=== PATIENT | male | born 1955 | race Caucasian/White ===

== ENCOUNTER 2023-06-04 15:47 | Outpatient (CLI) | payer BC, MEDICARE | END 2023-06-04 15:48 | disposition home or self-care (01) | LOC: LABBT 15:47 | PROVIDERS: ATTEND Surgery | DX: Z01.810 Encounter for preprocedural cardiovascular examination (principal); K21.9 Gastro-esophageal reflux disease without esophagitis; K44.9 Diaphragmatic hernia without obstruction or gangrene; K22.9 Disease of esophagus, unspecified; Z98.84 Bariatric surgery status | CPT/HCPCS: 93005; 93010 ==

== ENCOUNTER 2023-06-04 17:00 | Inpatient (IN) | payer MEDICARE ==
[2023-06-14] MEDS ORDERED: Lidocaine 1% PF 5 ML VIAL ONE ×2 (06:54→07:55)
[2023-06-14] MEDS ORDERED: PROPOFOL 20 ML ONE (06:54)
[2023-06-14] MEDS ORDERED: Rocuronium Bromide 10 MG/ML (10ML VIAL) ONE ×2 (06:54→07:55)
[2023-06-14] MEDS ORDERED: fentaNYL PF 100 MCG/2 ML SYRINGE ONE (06:54)
[2023-06-14] MEDS ORDERED: EPINEPHrine 1 MG/ML VIAL ONE (06:58)
[2023-06-14] MEDS ORDERED: Bupivacaine 0.25% HCL 30 ML VIAL ONE (06:58)
[2023-06-14] MEDS ORDERED: Famotidine/PF 20 mg/2ml Vial ONE (07:29)
[2023-06-14] MEDS ORDERED: cefOXitin 2 GM VIAL ONE ×3 (07:34→12:03)
[2023-06-14] MEDS ORDERED: Sodium Chloride 0.9% 100 ML ONE (07:34)
[2023-06-14] MEDS ORDERED: Succinylcholine 200 MG/10 ml SYRINGE FS ONE ×2 (07:52→07:55)
[2023-06-14] MEDS ORDERED: Ondansetron PF 4 MG/2 ML Vial ONE ×2 (07:55→12:51)
[2023-06-14] MEDS ORDERED: Dexamethasone 20 MG/5 ML VIAL ONE ×2 (07:55→08:09)
[2023-06-14] MEDS ORDERED: ePHEDrine Sulfate 50 MG/10 ML VIAL ONE ×2 (07:55→08:01)
[2023-06-14] MEDS ORDERED: Ketorolac Tromethamine 30 MG/ML VIAL ONE ×2 (07:55→12:51)
[2023-06-14] MEDS ORDERED: Glycopyrrolate 0.2 MG/ML 5 ML SYRINGE ONE (07:55)
[2023-06-14] MEDS ORDERED: PHENYLEPHRINE-NS 100 MCG/ML 10 ML SYRINGE ONE ×2 (07:55→10:06)
[2023-06-14] MEDS ORDERED: PROPOFOL 200 MG/20 ML VIAL ONE (07:55)
[2023-06-14] MEDS ORDERED: fentaNYL 50 mcg/mL 1 mL Vial ONE (11:40)
[2023-06-14] MEDS ORDERED: SUGAMMADEX SODIUM 200 MG/2 ML VIAL ONE (12:54)
[2023-06-14] MEDS ORDERED: Ondansetron HCl/PF 4 MG/2 ML Vial IVP PRN (13:15)
[2023-06-14] MEDS ORDERED: Promethazine HCl 25 MG/ML VIAL IM PRN ×2 (13:15→13:51)
[2023-06-14] MEDS ORDERED: Ondansetron PF 4 MG/2 ML Vial IVP PRN (13:51)
[2023-06-14] MEDS ORDERED: Morphine 2 MG/ML VIAL SLOW IVP PRN (13:51)
[2023-06-14] MEDS ORDERED: hydrALAZINE 20 MG/ML VIAL SLOW IVP PRN (13:51)
[2023-06-14] MEDS ORDERED: diphenhydrAMINE 50 MG/ML VIAL IVP PRN (13:51)
[2023-06-14] MEDS ORDERED: Hydrocodone-Acetamin 15 ML UDCUP PO PRN (13:51)
[2023-06-14] MEDS ORDERED: Glucagon 1 MG/ML KIT IM PRN (13:51)
[2023-06-14] MEDS ORDERED: Ipratropium/Albuterol 3 ML NEB NEB PRN (13:51)
[2023-06-14] MEDS ORDERED: Dextrose 50% Abboject 50 ML SYRINGE SLOW IVP PRN (13:51)
[2023-06-14] MEDS ORDERED: Dextrose 5% in Water 1,000 ML IV PRN (13:51)
[2023-06-14] MEDS ORDERED: Non-Formulary Item 1 EACH (Esomeprazole Magnesium [Nexium] 20 MG Capsule.Dr) PO PRN (13:53)
[2023-06-14] MEDS: D5 1/2 NS w/20 mEq KCL 1,000 ML IV SCH ×2 (22:52→22:53)
[2023-06-14] MEDS: Ketorolac Tromethamine 30 MG/ML VIAL IVP SCH ×2 (22:53→23:23)
[2023-06-14 23:14] VITALS: BMI 35.2
[2023-06-15] MEDS: D5 1/2 NS w/20 mEq KCL 1,000 ML IV SCH (02:27)
[2023-06-15] MEDS: Ketorolac Tromethamine 30 MG/ML VIAL IVP SCH ×2 (05:48→11:54)
[2023-06-15] MEDS ORDERED: Pantoprazole 40 MG VIAL IVP SCH (09:00)
[2023-06-15 12:28] VITALS: BP 143/77; TEMP 97.9
== END 2023-06-15 13:32 | disposition home or self-care (01) | DRG 327 ==
LOC: SURG A 06-14 06:05
PROVIDERS: ADMIT Surgery; ATTEND Surgery
PROC: 0WUF4JZ Supplement Abdominal Wall with Synthetic Substitute, Percutaneous Endoscopic Approach (ICD-10-PCS; principal; 2023-06-14)
PROC: 0BUT4JZ Supplement Diaphragm with Synthetic Substitute, Percutaneous Endoscopic Approach (ICD-10-PCS; 2023-06-14)
PROC: 0DP64CZ Removal of Extraluminal Device from Stomach, Percutaneous Endoscopic Approach (ICD-10-PCS; 2023-06-14)
PROC: 8E0W4CZ Robotic Assisted Procedure of Trunk Region, Percutaneous Endoscopic Approach (ICD-10-PCS; 2023-06-14)
DX: K44.9 Diaphragmatic hernia without obstruction or gangrene (principal); K31.1 Adult hypertrophic pyloric stenosis; K21.9 Gastro-esophageal reflux disease without esophagitis; K43.2 Incisional hernia without obstruction or gangrene; E66.01 Morbid (severe) obesity due to excess calories; Z68.35 Body mass index [BMI] 35.0-35.9, adult; Z79.899 Other long term (current) drug therapy
CPT/HCPCS: C1781; C9113; J0171; J0694; J1100; J1650; J1885; J2405; J2704; J3010; J3480; J3490; S0020; S0028